=== PATIENT | female | born 1985 | race Caucasian/White ===

== ENCOUNTER 2018-11-09 03:14 | Emergency (ER) | payer SELFPAY ==
[~2018-11-09] VITALS: Ht 177.8 cm; Wt 81.6 kg
[2018-11-09 03:16] VITALS: Ht 177.8 cm; Wt 81.6 kg
[2018-11-09 03:54] LABS: BASOPHIL % 0.4 % (0-2); PLATELET COUNT 219 x10^3mcL (130-400); RED CELL DISTRIBUTION WIDTH 13.5 % (11.5-14.5)
[2018-11-09 04:20] LABS: CALCIUM 9.3 mg/dL (8.5-10.1); CARBON DIOXIDE 23.8 mmol/L (21-32); CHLORIDE SERUM 110 mmol/L (98-107); CREATININE SERUM 0.8 mg/dL (0.6-1.0); GFR1 > 60 mL/min; GLUCOSE SERUM 144 mg/dL (74-106); POTASSIUM SERUM 4.4 mmol/L (3.5-5.1); SODIUM SERUM 143 mmol/L (136-145)
[2018-11-09 04:25] LABS: AMPHETAMINE QUAL UR POSITIVE (See below)
[2018-11-09 04:33] LABS: ALBUMIN 3.6 g/dL (3.4-5.0); ALKALINE PHOSPHATASE 76 U/L (46-116); ALT/SGPT 20 U/L (14-59); AST/SGOT 9 U/L (15-37); BILIRUBIN TOTAL 0.48 mg/dL (0.20-1.00); T4(THYROXINE) 8.3 ug/dL (4.7-13.3); TOTAL PROTEIN, SERUM 7.3 g/dL (6.4-8.2)
--- NOTE | 2018-11-09 15:20 | NUR ---
Received pt packet via fax. Pt packet faxed to [facility]. Will continue to look for accepting facilities. Will contact ER with any updates.
[2018-11-10 09:45] VITALS: BP 127/57
== END 2018-11-10 09:45 | disposition home or self-care (01) ==
LOC: ED 03:14
PROVIDERS: Emergency Medicine
DX: F15.10 Other stimulant abuse, uncomplicated (principal); R40.4 Transient alteration of awareness
CPT/HCPCS: 36415; G0480